=== PATIENT | male | born 1975 | race Caucasian/White ===

== ENCOUNTER 2017-08-17 01:24 | Observation (INO) ==
[2017-08-17] MEDS ORDERED: Ketorolac 15 MG/ML VIAL IVP ONE (01:32)
[2017-08-17] MEDS ORDERED: Hyoscyamine SL 0.125 MG TAB.SUBL SL STA (01:32)
--- NOTE | 2017-08-17 01:35 | Emergency Department Note ---
Disposition Clinical Impression: SENAIT (acute kidney injury) Hematuria Qualifiers: Hematuria type: gross Qualified Code(s): R31.0 - Gross hematuria Disposition: Admitted As Inpatient Condition: Undetermined Referrals: NONE,PCP [Primary Care Provider] - Catie Boswell [Family Provider] - Forms: ED Satisfaction Letter Time of Disposition: 03:12 Male Urogenital HPI - General Chief complaint: ED Urogenital-Male Stated complaint: Kidney Stones Time Seen by Provider: 08/17/17 01:31 Source: patient Mode of arrival: ambulatory Limitations: no limitations Nursing Notes Reviewed: Yes Vital Signs Reviewed: Yes - History of Present Illness HPI Narrative: 42-year-old male with no previous medical history arrives to the emergency department complaining of left flank pain and hematuria. The patient denies any previous medical history like this in the past. The patient states this started roughly 1 hour ago. Patient denies any other complaints other than nausea and one episode of vomiting. He denies any diarrhea, hematochezia, melena, hematemesis. He is very uncomfortable in the room and thinks that he has a kidney stone. No previous history of kidney stones. - Related Data Allergies Allergy/AdvReac Type Severity Reaction Status Date / Time No Known Allergies Allergy Verified 08/17/17 01:29 All systems ED: reviewed and negative except as stated. Constitutional: Denies: fever, chills ENT ED: Denies: congestion Cardiovascular: Denies: chest pain Respiratory: Denies: dyspnea Gastrointestinal: Reports: abdominal pain, nausea, vomiting. Denies: diarrhea, constipation, hematemesis, melena, hematochezia Genitourinary: Reports: hematuria. Denies: urgency, dysuria, frequency, testicular pain Musculoskeletal: Reports: back pain. Denies: neck pain, arthralgia, myalgia Integumentary: Denies: rash Neurological: Denies: headache Past Medical History - Past Medical History Attestation: Yes The following information was validated with the patient. Source: patient Medical history: Reports: no medical history Surgical history: Reports: non-contributory Psychiatric history: Reports: no psych history - Social History Smoking Status: Never smoker Smokeless Tobacco Status: No Alcohol use: Reports: rarely Drug use: Reports: none Physical Exam - General Limitations: no limitations General appearance: alert, in distress (Due to pain) - Head Head exam: normal inspection - Eye Eye exam: Present: normal appearance - ENT ENT exam: normal exam, normal oropharynx, mucous membranes moist, normal external ear exam - Neck Neck exam: Present: normal inspection, full ROM, trachea midline - Chest Chest inspection: Present: normal inspection, symmetric chest wall rise - Respiratory Respiratory exam: Present: normal lung sounds bilaterally - Cardiovascular Cardiovascular exam: Present: regular rate, normal rhythm, normal heart sounds - Abdominal Exam Abdominal Exam: Present: soft, Non-Tender. Absent: tenderness, distention, guarding, rebound, Singer's sign, Rovsing's sign, tenderness at McBurney's Point , pulsatile mass, hernia, scar - Neurological Exam Neurological exam: Present: alert, oriented X3, normal gait - Skin Skin exam: Present: warm, dry, intact, normal color Course - Consultations Consultation #1: We spoke with Dr. Pryor in urology who stated that if the patient's pain was not well-controlled he should be admitted to the hospital and will see him in consult. He did states that if the patient's pain is well-controlled he will be able to see him and outpatient setting. Time: 03:04 Vital Signs Temperature 97.9 F 08/17/17 01:29 Pulse Rate 97 08/17/17 01:29 Respiratory Rate 16 08/17/17 01:29 Blood Pressure 116/68 08/17/17 01:29 O2 Sat by Pulse Oximetry 99 08/17/17 01:29 Temperature 97.9 F 08/17/17 01:29 Pulse Rate 92 08/17/17 02:48 Respiratory Rate 16 08/17/17 02:48 Blood Pressure 115/55 08/17/17 02:48 O2 Sat by Pulse Oximetry 100 08/17/17 02:48 Oxygen Delivery Oxygen Delivery Room Air Urogenital-Male - MDM Narrative Medical decision making narrative: Patient CT scan demonstrates findings concerning for hemorrhage as well as perinephric stranding on the left and hydroureteronephrosis. The patient does have grossly bloody urine. The patient also has a mild acute kidney injury. We will admit the patient to the hospital this time for pain control and further workup and care. Urology is consulted. They will see patient in the morning. Patient was made aware and agrees to plan of care. No further questions or concerns noted at this time. Accepted by Dr. Lawson. - Lab Data Lab results reviewed: Yes I reviewed the patient's lab results. Result diagrams: 08/17/17 01:34 08/17/17 01:34 Lab Results 08/17/17 08/17/17 08/17/17 Range/Units 01:30 01:34 01:34 WBC 17.4 H (4.3-11.1) K/mcL RBC 4.77 (4.19-5.50) M/mcL Hgb 15.5 (12.9-16.9) g/dL Hct 44.0 (37.5-50.1) % MCV 92.2 (83.0-100.0) fL MCH 32.5 (28.0-33.3) pg MCHC 35.2 (31.6-35.5) g/dL RDW 11.7 (11.5-14.5) % Plt Count 253 (140-400) K/mcL MPV 9.9 (9.4-12.4) fL Immature Gran % 0.5 (0-4) % Seg Neutrophils % 91.2 % Lymphocytes % 4.8 % Monocytes % 3.4 % Eosinophils % 0.0 % Basophils % 0.1 % Neutrophils # 15.9 H (1.6-8.9) K/mcL Lymphocytes # 0.8 (0.6-4.6) K/mcL Monocytes # 0.6 (0.0-1.3) K/mcL Eosinophils # 0.0 (0.0-0.6) K/mcL Basophils # 0.0 (0.0-0.2) K/mcL Sodium 135 L (136-145) mEq/L Potassium 4.1 (3.5-5.1) mEq/L Chloride 99 (98-107) mEq/L Carbon Dioxide 24 (23-29) mEq/L BUN 19 (6-20) mg/dL Creatinine 1.52 H (0.70-1.30) mg/dL Est GFR ( Amer) > 60 (> 60) Est GFR (Non-Af Amer) 50 L (> 60) BUN/Creatinine Ratio 13 (6-26) Glucose 129 H (70-105) mg/dL Calculated Osmolality 284 (280-300) Calcium 9.9 (8.6-10.3) mg/dL Total Bilirubin 0.8 (0.3-1.0) mg/dL AST 22 (13-39) Units/L ALT 15 (7-52) Units/L Alkaline Phosphatase 49 (34-104) Units/L Serum Total Protein 7.4 (6.4-8.9) g/dL Albumin 4.6 (3.5-5.7) g/dL Globulin 2.8 (2.4-3.5) g/dL Albumin/Globulin Ratio 1.6 (1.1-2.2) Ur Specimen Adequacy See below A Urine Color Red A (Yellow) Urine Clarity Cloudy A (Clear) Urine pH 5.5 (5.0-8.0) pH Units Ur Specific [place] > 1.030 H (1.010-1.025) Urine Protein 100 H (Neg-Trace) mg/dL Urine Glucose (UA) Normal (Normal) mg/dL Urine Ketones 80 H (Negative) mg/dL Urine Blood Large H (Negative) Urine Nitrite Negative (Negative) Urine Bilirubin Negative (Negative) Urine Urobilinogen Normal (Normal) mg/dL Ur Leukocyte Esterase Small H (Negative) Ur Culture Indicated? YES A (NO) - Radiology Data Radiology results reviewed: Yes I reviewed the patient's radiology results. Abdomen/Pelvis CT 08/17/17 01:32 IMPRESSION: Left-sided hydroureteronephrosis with no definite calculi identified. The high attenuation in the bladder and distal left ureter probably represents hemorrhage. D/ / Yovani Polo MD / Yovani Polo MD Interpreting Provider: Yovani Polo MD
[2017-08-17 01:43] LABS: Basophils % 0.1 %; Hemoglobin 15.5 g/dL (12.9-16.9); Immature Granulocytes % 0.5 % (0-4); Lymphocytes # 0.8 K/mcL (0.6-4.6); Lymphocytes % 4.8 %; Mean Corpuscular HGB Conc 35.2 g/dL (31.6-35.5); Mean Corpuscular Hemoglobin 32.5 pg (28.0-33.3); Mean Corpuscular Volume 92.2 fL (83.0-100.0); Mean Platelet Volume 9.9 fL (9.4-12.4); Monocytes # 0.6 K/mcL (0.0-1.3); Monocytes % 3.4 %; Neutrophils # 15.9 K/mcL (1.6-8.9); Platelet Count 253 K/mcL (140-400); Red Blood Count 4.77 M/mcL (4.19-5.50); Red Cell Distribution Width 11.7 % (11.5-14.5); Segmented Neutrophils % 91.2 %
[2017-08-17 01:50] LABS: Bilirubin,Urine Negative (Negative); Blood,Urine Large (Negative); Clarity,Urine Cloudy (Clear); Ketones,Urine 80 mg/dL (Negative); Leukocyte Esterase,Urine Small (Negative); Nitrite,Urine Negative (Negative); PH,Urine 5.5 pH Units (5.0-8.0); Protein,Urine 100 mg/dL (Neg-Trace); Specific Gravity,Urine > 1.030 (1.010-1.025); Urobilinogen,Urine Normal (Normal)
[2017-08-17 01:53] LABS: Color,Urine Red (Yellow); Glucose,Urine (UA) Normal (Normal)
[2017-08-17] MEDS ORDERED: 0.9 % Sodium Chloride 1,000 ML IVC ONE ×2 (01:58→13:26)
[2017-08-17 02:03] LABS: Alanine Aminotransferase 15 Units/L (7-52); Albumin 4.6 g/dL (3.5-5.7); Albumin/Globulin Ratio 1.6 (1.1-2.2); Alkaline Phosphatase 49 Units/L (34-104); Aspartate Amino Transferase 22 Units/L (13-39); BUN/Creatinine Ratio 13 (6-26); Bilirubin,Total 0.8 mg/dL (0.3-1.0); Blood Urea Nitrogen 19 mg/dL (6-20); Calcium 9.9 mg/dL (8.6-10.3); Carbon Dioxide 24 mEq/L (23-29); Chloride 99 mEq/L (98-107); Globulin 2.8 g/dL (2.4-3.5); Glucose 129 mg/dL (70-105); Osmolality,Calculated 284 (280-300); Potassium 4.1 mEq/L (3.5-5.1); Sodium 135 mEq/L (136-145); Total Protein 7.4 g/dL (6.4-8.9); eGFR For African Americans > 60 (> 60); eGFR For Non-African Americans 50 (> 60)
--- NOTE | 2017-08-17 02:32 | Emergency Department Note ---
Disposition Clinical Impression: SENAIT (acute kidney injury), Hematuria Disposition: Admitted As Inpatient Condition: Undetermined General Adult HPI - General Chief complaint: ED Abdominal Pain Stated complaint: Kidney Stones Time Seen by Provider: 08/17/17 01:31 Source: patient Mode of arrival: ambulatory Limitations: no limitations Nursing Notes Reviewed: Yes Vital Signs Reviewed: Yes - History of Present Illness Pain Scale: 7 - Related Data Home Medications Medication Instructions Recorded Confirmed No Known Home Drugs 08/17/17 08/17/17 Allergies Allergy/AdvReac Type Severity Reaction Status Date / Time No Known Allergies Allergy Verified 08/17/17 01:29 Constitutional: Denies: fever, chills ENT ED: Denies: congestion Cardiovascular: Denies: chest pain Respiratory: Denies: dyspnea Gastrointestinal: Reports: abdominal pain, nausea, vomiting. Denies: diarrhea, constipation, hematemesis, melena, hematochezia Genitourinary: Reports: hematuria. Denies: urgency, dysuria, frequency, testicular pain Musculoskeletal: Reports: back pain. Denies: neck pain, arthralgia, myalgia Integumentary: Denies: rash Neurological: Denies: headache Past Medical History - Past Medical History Medical history: Reports: no medical history Surgical history: Reports: non-contributory Psychiatric history: Reports: no psych history - Social History Smoking Status: Never smoker Smokeless Tobacco Status: No Alcohol use: Reports: rarely Drug use: Reports: none Physical Exam - General Limitations: no limitations General appearance: alert, in distress (Due to pain) Course Vital Signs Temperature 97.9 F 08/17/17 01:29 Pulse Rate 97 08/17/17 01:29 Respiratory Rate 16 08/17/17 01:29 Blood Pressure 116/68 08/17/17 01:29 O2 Sat by Pulse Oximetry 99 08/17/17 01:29 Temperature 97.9 F 08/17/17 01:29 Pulse Rate 92 08/17/17 02:48 Respiratory Rate 16 08/17/17 02:48 Blood Pressure 115/55 08/17/17 02:48 O2 Sat by Pulse Oximetry 100 08/17/17 02:48 Oxygen Delivery Oxygen Delivery Room Air Medical Decision Making - Lab Data Result diagrams: 08/17/17 01:34 08/17/17 01:34 Lab Results 08/17/17 08/17/17 08/17/17 Range/Units 01:30 01:34 01:34 WBC 17.4 H (4.3-11.1) K/mcL RBC 4.77 (4.19-5.50) M/mcL Hgb 15.5 (12.9-16.9) g/dL Hct 44.0 (37.5-50.1) % MCV 92.2 (83.0-100.0) fL MCH 32.5 (28.0-33.3) pg MCHC 35.2 (31.6-35.5) g/dL RDW 11.7 (11.5-14.5) % Plt Count 253 (140-400) K/mcL MPV 9.9 (9.4-12.4) fL Immature Gran % 0.5 (0-4) % Seg Neutrophils % 91.2 % Lymphocytes % 4.8 % Monocytes % 3.4 % Eosinophils % 0.0 % Basophils % 0.1 % Neutrophils # 15.9 H (1.6-8.9) K/mcL Lymphocytes # 0.8 (0.6-4.6) K/mcL Monocytes # 0.6 (0.0-1.3) K/mcL Eosinophils # 0.0 (0.0-0.6) K/mcL Basophils # 0.0 (0.0-0.2) K/mcL Sodium 135 L (136-145) mEq/L Potassium 4.1 (3.5-5.1) mEq/L Chloride 99 (98-107) mEq/L Carbon Dioxide 24 (23-29) mEq/L BUN 19 (6-20) mg/dL Creatinine 1.52 H (0.70-1.30) mg/dL Est GFR ( Amer) > 60 (> 60) Est GFR (Non-Af Amer) 50 L (> 60) BUN/Creatinine Ratio 13 (6-26) Glucose 129 H (70-105) mg/dL Calculated Osmolality 284 (280-300) Calcium 9.9 (8.6-10.3) mg/dL Total Bilirubin 0.8 (0.3-1.0) mg/dL AST 22 (13-39) Units/L ALT 15 (7-52) Units/L Alkaline Phosphatase 49 (34-104) Units/L Serum Total Protein 7.4 (6.4-8.9) g/dL Albumin 4.6 (3.5-5.7) g/dL Globulin 2.8 (2.4-3.5) g/dL Albumin/Globulin Ratio 1.6 (1.1-2.2) Ur Specimen Adequacy See below A Urine Color Red A (Yellow) Urine Clarity Cloudy A (Clear) Urine pH 5.5 (5.0-8.0) pH Units Ur Specific [place] > 1.030 H (1.010-1.025) Urine Protein 100 H (Neg-Trace) mg/dL Urine Glucose (UA) Normal (Normal) mg/dL Urine Ketones 80 H (Negative) mg/dL Urine Blood Large H (Negative) Urine Nitrite Negative (Negative) Urine Bilirubin Negative (Negative) Urine Urobilinogen Normal (Normal) mg/dL Ur Leukocyte Esterase Small H (Negative) Ur Culture Indicated? YES A (NO) Attestation Statement - Attestation Attestation: I, Jaya Gill MD, personally evaluated this patient and discussed their management with the resident physician. I reviewed the resident's note and agree with the documented findings, medical decision making, and plan of care. 42-year-old male presents to the emergency department with a complaint that about 11 AM yesterday he noticed some gross hematuria. Later in the afternoon he developed some sharp colicky left flank pain. Patient felt he probably had a kidney stone. He has never had kidney stones before. He states he tried to tough it out to see if it would pass but the pain became more severe tonight. He has had nausea and vomiting associated with the pain. Also diaphoresis. No fever. On examination patient is a well-developed well-nourished well-appearing male in no acute distress. He is alert and oriented 3. There is no cyanosis or diaphoresis. Breath sounds are clear and equal bilaterally. Heart regular rate and rhythm. Abdomen is soft with normal bowel sounds. Mild left CVA tenderness. Labs reviewed. CT of the abdomen and pelvis shows: Left-sided hydroureteronephrosis with no definite calculi identified. The high attenuation in the bladder and distal left ureter probably represents hemorrhage. Dr. Delgado discussed the CT results with the urologist administrative receptionist, Dr. Pryor. Patient continues to have pain and would feel more comfortable being admitted to the hospital. The hospitalist, Dr. Lawson, was consulted and accepted admission of the patient.
[2017-08-17] MEDS ORDERED: *HR* Morphine Immed Rel 30 MG TABLET PO STA (02:53)
[2017-08-17] MEDS ORDERED: *HR* FentaNYL (PF) 100 MCG/2 ML VIAL IVP ONE (03:02)
[2017-08-17] MEDS ORDERED: *HR* HYDROcodone/Acet 5/325 mg TABLET PO PRN (03:13)
[2017-08-17] MEDS ORDERED: Naloxone 0.4 MG/ML INJ IVP PRN (03:13)
[2017-08-17] MEDS ORDERED: Acetaminophen 325 MG TABLET PO PRN (03:13)
[2017-08-17] MEDS ORDERED: 0.9 % Sodium Chloride 1,000 ML IVC SCH (03:15)
--- NOTE | 2017-08-17 03:18 | Internal Med History&Physical ---
Date of Encounter: 08/17/17 Time of Encounter: 03:15 Internal Medicine - H&P: HPI Chief complaint: flank pain Admitted From: Emergency Dept Plans for Post Hospital Care: Home History of present illness: Mr. Ness is a 42 year old male with no past medical history who presents to the ED complaining of left colicky flank pain with hematuria that started last night suddenly at 11 pm. Patient thought he may have had a kidney stone but never had one in the past. Not on any blood thinners or anti-platelets. Reports nausea and vomiting and diaphoresis. By the time I saw him, he stated that his flank pain is gone for the most part but he received pain meds in the ED. He stated that he urinated blood clots the last time he urinated in the ED which is new compared to the ones at home. In the ED, hemodynamically stable. Labs showed leukocytosis and elevated creatinine with unknown baseline. CT abd/ pelvis concerning for left-sided hydroureteronephrosis with an area of high attenuation in the bladder and distal ureter possibly representing hemorrhage. No stones were seen. Urology were contacted and will see the patient in the morning for possible cystoscopy. Denies fever, chills, headache, blurry vision, chest pain, shortness of breath, abdominal pain, diarrhea, constipation, or neurological symptoms. Past Med Surg Social Fam HX - Past Medical History Medical history: no medical history Psychiatric history: no psych history - Past Surgical History Surgical History: non-contributory - Social History Smoking Status: Never smoker Smokeless Tobacco Status: No Alcohol use: rarely Drug use: none - Family History Mother Hx Family Endocrine Disorder: Yes (Diabetes) Internal Medicine - H&P: Meds No Known Home Drugs 08/17/17 [History] 3 Allergy/AdvReac Type Severity Reaction Status Date / Time No Known Allergies Allergy Verified 08/17/17 01:29 All Systems PM: A 10-system review of systems was performed and is negative for pertinent findings except as documented above in the HPI. Review of systems: All systems reviewed are negative except as mentioned above - Constitutional Vitals: Temp Pulse Resp BP Pulse Ox 97.9 F 92 16 115/55 100 08/17/17 01:29 08/17/17 02:48 08/17/17 02:48 08/17/17 02:48 08/17/17 02:48 Exam: GEN: NAD HEENT: AT, NC, No cyanosis, oral mucosa is moist, No JVD Lymphatics: No lymphadenoapthy Eyes: Extrocular muscles intact, anicteric CVS:RRR. S1, S2, No m/r/g RESP: CTAB ABD: Soft, NT, ND, +BS EXT: No edema, No rashes, 2+ DP NEURO: Nonfocal, CN II-XII intact, No focal motor or sensory deficits Psych: Cooperative, Not anxious or depressed Internal Med - H&P Results - Labs CBC & Chem 7: 08/17/17 01:34 08/17/17 01:34 Labs: Short CBC 08/17/17 Range/Units 01:34 WBC 17.4 H (4.3-11.1) K/mcL Hgb 15.5 (12.9-16.9) g/dL Hct 44.0 (37.5-50.1) % Plt Count 253 (140-400) K/mcL Neutrophils # 15.9 H (1.6-8.9) K/mcL BMP 08/17/17 01:34 Sodium 135 L Potassium 4.1 Chloride 99 Carbon Dioxide 24 BUN 19 Creatinine 1.52 H Glucose 129 H Calcium 9.9 Liver Function 08/17/17 Range/Units 01:34 Total Bilirubin 0.8 (0.3-1.0) mg/dL AST 22 (13-39) Units/L ALT 15 (7-52) Units/L Alkaline Phosphatase 49 (34-104) Units/L Albumin 4.6 (3.5-5.7) g/dL Urine 08/17/17 Range/Units 01:30 Urine Color Red A (Yellow) Urine Clarity Cloudy A (Clear) Urine pH 5.5 (5.0-8.0) pH Units Ur Specific [place] > 1.030 H (1.010-1.025) Urine Protein 100 H (Neg-Trace) mg/dL Urine Glucose (UA) Normal (Normal) mg/dL - Impressions ITS Impressions Abdomen/Pelvis CT 08/17/17 01:32 IMPRESSION: Left-sided hydroureteronephrosis with no definite calculi identified. The high attenuation in the bladder and distal left ureter probably represents hemorrhage. D/ / Yovani Polo MD / Yovani Polo MD Interpreting Provider: Yovani Polo MD - Assessment and plan (1) Hematuria Current Visit: Yes Status: Acute Assessment and plan: ??etiology. ???UTI vs. passed stone. CT abd/pelvis with Left-sided hydroureteronephrosis with no definite calculi identified. The high attenuation in the bladder and distal left ureter probably represents hemorrhage. Urology consulted. NPO. IVF. Ceftriaxone empirically for now. F/u on UA cultures. Pain control for left flank pain. Qualifiers: Hematuria type: gross Qualified Code(s): R31.0 - Gross hematuria (2) SENAIT (acute kidney injury) Current Visit: Yes Status: Acute Assessment and plan: Unknown baseline. Will give IVF and check labs in am. Avoid nephrotoxins. (3) DVT prophylaxis Current Visit: Yes Status: Acute Assessment and plan: SCDs - Time Spent With Patient Total time spent is greater than 50% in coordination of care (as documented) at patient's floor/unit and/or counseling patient:
[2017-08-17] MEDS ORDERED: Ondansetron 4 MG/2 ML VIAL IVP PRN (03:19)
[2017-08-17] MEDS ORDERED: cefTRIAXone 1,000 MG in Water for inj. (sterile) 20 ML 10 ML IVP SCH (04:00)
[2017-08-17 04:21] LABS: Basophils % 0.1 %; Immature Granulocytes % 1.1 % (0-4); Lymphocytes # 1.1 K/mcL (0.6-4.6); Lymphocytes % 5.7 %; Mean Corpuscular HGB Conc 34.8 g/dL (31.6-35.5); Mean Corpuscular Hemoglobin 32.5 pg (28.0-33.3); Mean Corpuscular Volume 93.5 fL (83.0-100.0); Mean Platelet Volume 10.2 fL (9.4-12.4); Monocytes % 5.3 %; Neutrophils # 16.3 K/mcL (1.6-8.9); Platelet Count 223 K/mcL (140-400); Red Blood Count 4.28 M/mcL (4.19-5.50); Red Cell Distribution Width 11.7 % (11.5-14.5); Segmented Neutrophils % 87.8 %
[2017-08-17 04:28] LABS: INR 1.1; Prothrombin Time 12.2 Seconds (9.4-12.1)
[2017-08-17 04:36] LABS: Hemoglobin 13.9 g/dL (12.9-16.9)
[2017-08-17 04:42] LABS: BUN/Creatinine Ratio 12 (6-26); Blood Urea Nitrogen 18 mg/dL (6-20); Carbon Dioxide 24 mEq/L (23-29); Chloride 102 mEq/L (98-107); Glucose 120 mg/dL (70-105); Magnesium 1.8 mg/dL (1.6-2.6); Osmolality,Calculated 283 (280-300); Sodium 135 mEq/L (136-145); eGFR For African Americans > 60 (> 60); eGFR For Non-African Americans 51 (> 60)
[2017-08-17 07:06] VITALS: BP 109/57
--- NOTE | 2017-08-17 07:44 | Urology - Consult Note ---
Date of Encounter: 08/17/17 Time of Encounter: 07:41 - Assessment and Plan (1) Hydronephrosis of left kidney Current Visit: Yes Status: Acute Assessment and plan: 42-year-old man with left hydronephrosis. He has a mild elevation in his creatinine. He is voiding well and his pain is well-controlled. He does not require stent placement at this point. I recommend that he can be discharged as his pain is well-controlled. As an outpatient, I would proceed with a CT urogram once his renal function has improved. He may also require a cystoscopy and possible left ureteroscopy. I will defer to the hospitalist regarding disposition. (2) Hematuria Current Visit: Yes Status: Acute Assessment and plan: He reports that his hematuria is improving. It is now more consistent with a tea color. He does not require catheter at this time. We will monitor for now. He can follow up as an outpatient. Please call with any questions. Qualifiers: Hematuria type: gross Qualified Code(s): R31.0 - Gross hematuria Urology CN:HPI Consult date: 08/17/17 Reason for consult Urology: Gross Hematuria History of present illness: 42-year-old man presents with a 1 day history of left lower quadrant and left flank pain. The pain was severe last night. He denies any fevers or chills. The pain was sharp and radiated to his left groin. He also noted gross hematuria. He came to the emergency department. A CT scan showed concern for blood within the bladder and left hydroureteronephrosis. No evidence of stone was noted. He was admitted for pain control. Today, he is feeling better. He denies any pain issues at this time. He is able to urinate. His urine has a tea color to it. Past Med Surg Social Fam HX - Past Medical History Medical history: no medical history Psychiatric history: no psych history - Past Surgical History Surgical History: non-contributory - Social History Smoking Status: Never smoker Smokeless Tobacco Status: No Alcohol use: occasionally Drug use: none - Family History Mother Hx Family Endocrine Disorder: Yes (Diabetes) Medications and Allergies No Known Home Drugs 08/17/17 [History] 3 Allergy/AdvReac Type Severity Reaction Status Date / Time No Known Allergies Allergy Verified 08/17/17 01:29 Review of Systems - Constitutional no chills, no fever(s) - EENT Nose, mouth and throat: no dizziness - Cardiovascular no chest pain - Respiratory no dyspnea - Gastrointestinal no nausea, no vomiting - Genitourinary flank pain, hematuria - Musculoskeletal no back pain - Integumentary no erythema, no rash - Neurological no weakness - Psychiatric no suicidal ideation - Hematologic/Lymphatic no easy bleeding - Allergic/Immunologic no wheezing Exam Initial Vital Signs Temp Pulse Resp BP Pulse Ox 97.9 F 97 16 116/68 99 08/17/17 01:29 08/17/17 01:29 08/17/17 01:29 08/17/17 01:29 08/17/17 01:29 - General physical appearance Present: well developed, well nourished, no distress - Eyes Absent: icteric - ENT Present: normal nares - Neck Present: trachea midline - Respiratory Present: normal respiratory effort - Cardiovascular Cardiovascular exam IM: RRR - Abdomen Abdomen: Present: soft - Genitourinary normal penis with no external lesions, testicles present, testicles non-tender - Integumentary Present: no rash - Neurologic Present: normal coordination - Musculoskeletal Present: other (no edema.) Urology Results - Labs 08/17/17 04:01 08/17/17 04:01 Abnormal lab results WBC 18.6 K/mcL (4.3-11.1) H 08/17/17 04:01 Neutrophils # 16.3 K/mcL (1.6-8.9) H 08/17/17 04:01 PT 12.2 Seconds (9.4-12.1) H 08/17/17 04:01 Sodium 135 mEq/L (136-145) L 08/17/17 04:01 Creatinine 1.50 mg/dL (0.70-1.30) H 08/17/17 04:01 Est GFR (Non-Af Amer) 51 (> 60) L 08/17/17 04:01 Glucose 120 mg/dL (70-105) H 08/17/17 04:01 POC Glucose 101 mg/dL (70-99) H 08/17/17 05:51 Ur Specimen Adequacy See below A 08/17/17 01:30 Urine Color Red (Yellow) A 08/17/17 01:30 Urine Clarity Cloudy (Clear) A 08/17/17 01:30 Ur Specific [place] > 1.030 (1.010-1.025) H 08/17/17 01:30 Urine Protein 100 mg/dL (Neg-Trace) H 08/17/17 01:30 Urine Ketones 80 mg/dL (Negative) H 08/17/17 01:30 Urine Blood Large (Negative) H 08/17/17 01:30 Ur Leukocyte Esterase Small (Negative) H 08/17/17 01:30 Ur Culture Indicated? YES (NO) A 08/17/17 01:30 Diabetes panel 08/17/17 Range/Units 04:01 Sodium 135 L (136-145) mEq/L Potassium 4.0 (3.5-5.1) mEq/L Chloride 102 (98-107) mEq/L Carbon Dioxide 24 (23-29) mEq/L BUN 18 (6-20) mg/dL Creatinine 1.50 H (0.70-1.30) mg/dL Glucose 120 H (70-105) mg/dL Calcium 9.0 (8.6-10.3) mg/dL Calcium panel 08/17/17 Range/Units 04:01 Calcium 9.0 (8.6-10.3) mg/dL Pituitary panel 08/17/17 Range/Units 04:01 Sodium 135 L (136-145) mEq/L Potassium 4.0 (3.5-5.1) mEq/L Chloride 102 (98-107) mEq/L Carbon Dioxide 24 (23-29) mEq/L BUN 18 (6-20) mg/dL Creatinine 1.50 H (0.70-1.30) mg/dL Glucose 120 H (70-105) mg/dL Calcium 9.0 (8.6-10.3) mg/dL Adrenal panel 08/17/17 Range/Units 04:01 Sodium 135 L (136-145) mEq/L Potassium 4.0 (3.5-5.1) mEq/L Chloride 102 (98-107) mEq/L Carbon Dioxide 24 (23-29) mEq/L BUN 18 (6-20) mg/dL Creatinine 1.50 H (0.70-1.30) mg/dL Glucose 120 H (70-105) mg/dL Calcium 9.0 (8.6-10.3) mg/dL All other labs normal. - Imaging CT scan - abdomen: report reviewed, image reviewed CT scan - pelvis: report reviewed, image reviewed Consult Discharge Plan - Plan Referrals: NONE,PCP [Primary Care Provider] - Catie Boswell [Family Provider] -
--- NOTE | 2017-08-17 13:57 | Discharge Summary ---
<Jonathan Franco - Last Filed: 08/17/17 13:54> Orders not resulted at time of discharge: Pending orders 08/17/17 15:00 Basic Metabolic Panel Stat Date of Encounter: 08/17/17 Time of Encounter: 10:05 - Discharge Diagnosis (1) Hematuria Priority: Primary Status: Acute Assessment and Plan: - etiology possibly secondary to recently passed kidney stone versus UTI - CT abd/pelvis with Left-sided hydroureteronephrosis with no definite calculi identified. The high attenuation in the bladder and distal left ureter probably represents hemorrhage. - Urology consulted. Has evaluated and states that he is stable for discharge with urology follow-up from their perspective - May need a urogram versus cystoscopy after discharge as outpatient - Pain is well-controlled, urine is now tea colored and improving Will obtain BMP/CBC at 1500 and plan for discharge if improving will also give bolus of 1 L saline Qualifiers: Hematuria type: gross Qualified Code(s): R31.0 - Gross hematuria (2) SENAIT (acute kidney injury) Priority: Secondary Status: Acute Assessment and Plan: - Adynamic, likely postrenal - BUNs/creatinine of 18/1.50 - We will check afternoon labs (3) DVT prophylaxis Priority: Secondary Status: Acute Assessment and Plan: SCDs Hospital course: Mr. Ness is a 42 year old male with no past medical history presenting to the emergency department with complaint of left flank pain and hematuria. No previous episodes of this however he does report a family history of kidney stones in his mother. Onset was approximately 1 hour prior to arrival. Also admits to nausea and one episode of vomiting. Denies any symptoms of fevers, chills, diarrhea, blood per rectum. States that hematuria was gross with sheridan red urine. Vitals on presentation unremarkable. Laboratory results were significant for a WBC of 17 and a creatinine of 1.52. Laboratory results otherwise only significant for urinalysis showing gross blood and a high specific gravity. There was a small amount of leukocyte esterase however this is less likely urinary tract infection. CT abdomen was performed showing left hydroureteronephrosis without obvious evidence of stone. Urology was consult in the emergency department. Patient was admitted to medicine service for further evaluation and management of gross hematuria. During the course of hospital stay, patient did gradually improve. He was seen by urology who determined that this is likely secondary to a recently passed stone and is okay for discharge as his pain has been well controlled and his symptoms have resolved. He is still having dark urine however it is no longer grossly bloody. They recommended outpatient follow-up for possible CT urogram versus cystoscopy. On day of discharge, patient's symptoms have resolved and his pain is well-controlled. He states that he feels "100% better". Vital signs have remained stable and laboratory results are essentially unchanged. We will obtain a repeat kidney function and WBC labs this afternoon after receiving fluids and a bolus of normal saline. He will be discharged conditionally pending improvement of symptoms. All questions were answered and he will be instructed to follow-up with his primary care physician and urologist for further management of this. We will be sure to take Tylenol for his pain. Discharge discussed with: patient, family - Time Spent with Patient Total time spent providing and/or coordinating discharge services: - Discharge Medications Home Medications: No Known Home Drugs 08/17/17 [History] Allergies/Adverse Reactions: 3 Allergy/AdvReac Type Severity Reaction Status Date / Time No Known Allergies Allergy Verified 08/17/17 08:27 Date of admission: 08/17/17 03:17 Primary care physician: PCP NONE Discharging clinician: Jonathan Franco Anticipated date of discharge: 08/17/17 - Constitutional Vitals: Temp Pulse Resp BP Pulse Ox 98.1 F 93 16 109/57 100 08/17/17 07:03 08/17/17 07:03 08/17/17 07:03 08/17/17 07:03 08/17/17 07:03 Exam: Gen.: Vitals noted. No acute distress. AAOx3 HEENT: PERRL/EOMI, oropharynx clear, Normocephalic, atraumatic, moist mucous membranes Cardiac: RRR, no murmur, +S1/S2 Pulmonary: CTA bilaterally, no wheezes, rales or rhonchi, equal chest expansion Abdomen: soft, nontender, BS noted, no guarding Back: Nontender throughout. No CVA tenderness : Urinal at bedside showing tea colored urine MSK: ROM intact, no joint swelling noted Extremities: no BLE edema, nontender calf, no cyanosis or clubbing Neuro: A&Ox3, moves all extremities, no focal deficits Psych: Appropriate mood and behavior - Patient Status Disposition: Home, Self-Care Condition: Good Functional capacity at discharge: independent ambulation Overall status at discharge: patient is progressing back to baseline - Ambulatory Orders Ambulatory Orders: Basic Metabolic Panel [CHEM] Time Frame: 2 Days, Facility: [facility], Location: Lab - Discharge Instructions Follow Up With: Jonathan Pryor MD [Partnered Physician] - 08/21/17 2:45 pm Additional Instructions: Please follow up with primary care physician and urology after discharge. Return to emergency room if her symptoms return. He may take Tylenol over-the- counter for your pain control. - Diet and Activity Activity: increase activity as tolerated, return to work once cleared by your PCP/specialist, resume usual activities as tolerated Diet: advance to your usual diet - VTE Reasons for not Prescribing Prophylaxis: Treatment not Indicated - Low risk for VTE <Aparna Stewart - Last Filed: 08/17/17 17:45> Date of Encounter: 08/17/17 - Discharge Diagnosis (1) SENAIT (acute kidney injury) Status: Acute (2) Hematuria Status: Acute Qualifiers: Hematuria type: gross Qualified Code(s): R31.0 - Gross hematuria (3) DVT prophylaxis Status: Acute Hospital course: Mr. Ness is a 42 year old male - Time Spent with Patient Total time spent providing and/or coordinating discharge services: Date of admission: 08/17/17 03:17 Primary care physician: PCP NONE - Constitutional Vitals: Temp Pulse Resp BP Pulse Ox 98.1 F 93 16 109/57 100 08/17/17 07:03 08/17/17 07:03 08/17/17 07:03 08/17/17 07:03 08/17/17 07:03 - Attending Attestation I performed a history and physical examination of the patient and discussed his/ her management with the resident. I reviewed the residents note and agree with the documented findings and plan of care. Addendum entered and electronically signed by Jonathan Franco DO 08/17/17 15:46: WBC downtrending to 14.4, Cr mildly increased to 1.62. This was discussed with patient and we offered to continue to monitor overnight and he stated that he prefers to follow up with PCP as outpatient. He will be given lab work for 2 days for renal function. He was instructed to drink plenty of fluids and return if his symptoms do not improve.
[2017-08-17 14:54] LABS: Basophils % 0.1 %; Eosinophils % 0.3 %; Hematocrit 38.8 % (37.5-50.1); Hemoglobin 13.5 g/dL (12.9-16.9); Immature Granulocytes % 0.7 % (0-4); Lymphocytes # 0.8 K/mcL (0.6-4.6); Lymphocytes % 5.7 %; Mean Corpuscular HGB Conc 34.8 g/dL (31.6-35.5); Mean Corpuscular Hemoglobin 32.5 pg (28.0-33.3); Mean Corpuscular Volume 93.3 fL (83.0-100.0); Monocytes # 1.3 K/mcL (0.0-1.3); Neutrophils # 12.1 K/mcL (1.6-8.9); Platelet Count 198 K/mcL (140-400); Red Blood Count 4.16 M/mcL (4.19-5.50); Red Cell Distribution Width 11.9 % (11.5-14.5); Segmented Neutrophils % 84.2 %
[2017-08-17 15:06] LABS: Calcium 8.7 mg/dL (8.6-10.3)
== END 2017-08-17 16:51 | disposition home or self-care (01) ==
LOC: EMEROO 01:24 → 3ANU 01:24
PROVIDERS: ADMIT Internal Medicine; ATTEND Internal Medicine